=== PATIENT | female | born 1935 | race African-American/Black ===

== ENCOUNTER 2018-03-06 15:13 | Emergency (ER) | payer MEDICARE ==
[2018-03-06] MEDS ORDERED: Morphine 2 MG/ML SYRINGE ONE (19:03)
[2018-03-06] MEDS ORDERED: Morphine 4 MG/ML VIAL ONE (21:52)
== END 2018-03-06 22:12 | disposition short-term general hospital (02) ==
LOC: ERS 15:13
DX: A41.9 Sepsis, unspecified organism (principal); R16.0 Hepatomegaly, not elsewhere classified; K76.89 Other specified diseases of liver; N39.0 Urinary tract infection, site not specified; E86.0 Dehydration; E78.5 Hyperlipidemia, unspecified; I11.0 Hypertensive heart disease with heart failure; I50.9 Heart failure, unspecified; Z79.899 Other long term (current) drug therapy
CPT/HCPCS: 96361; 96374; 96376; J2270